=== PATIENT | male | born 1985 | race Caucasian/White ===

== ENCOUNTER 2019-12-09 14:12 | Emergency (ER) | payer OTHER, SELFPAY ==
[2019-12-09 14:21] VITALS: BP 137/82; PULSE 81; RESP 18; TEMP 36.2; O2SAT 99; BMI 22.7
[2019-12-09] MEDS: TET,DIPH,PERTUSS(ACELL),VAC/PF 0.5 ML SYRINGE IM (14:53)
[2019-12-09] MEDS: LIDO 1%/SOD BICARB 8.4% (10ML) 10 ML SYRINGE INJ (14:55)
[2019-12-09 15:41] VITALS: BP 127/75
--- NOTE | 2019-12-09 15:49 | ED.WOUNDLAC ---
HPI - Wound/Laceration <NAREN Correa - Last Filed: 12/09/19 15:55> General Chief Complaint: Wound/Laceration Stated Complaint: wound left thigh Time Seen by Provider: 12/09/19 14:45 Source: patient Mode of arrival: Ambulatory Limitations: no limitations History of Present Illness HPI narrative: The patient is a 34-year-old male nonsmoker who denies pertinent medical history presents with a chief complaint of a laceration to his left thigh. He was at work and accidentally cut his leg with a air box tester. He states he is concerned about contamination given that it was not a clean air box tester. States that he has full range of motion of his left leg. Unknown last tetanus. Related Data Allergies Allergy/AdvReac Type Severity Reaction Status Date / Time No Known Drug Allergies Allergy Verified 12/09/19 14:20 Review of Systems <NAREN Correa - Last Filed: 12/09/19 15:55> Review of Systems Narrative: GENERAL: Denies chills, fatigue, malaise, fever, sweats. HEENT: Denies sinus pain, ear pain, sore throat, difficulty swallowing, dizziness. RESPIRATORY: Denies dyspnea, cough, wheezing, hemoptysis, sputum. CARDIOVASCULAR: Denies chest pain, palpitations, orthopnea, edema, GASTROINTESTINAL: Denies nausea, vomiting, abdominal pain, diarrhea, constipation, melena. : Denies dysuria, frequency, incontinence, hematuria, urinary retention. MUSCULOSKELETAL: denies weakness, joint pain, or bony pain SKIN: See HPI NEUROLOGIC: Denies weakness, headache, numbness, change in speech, confusion, seizures, incoordination. PSYCHIATRIC: No concerning psychosocial issues. 12 point review of systems is negative except for those stated above Patient History <NAREN Correa - Last Filed: 12/09/19 15:55> Social History Smoking Status: Never smoker Smoking Status: Never smoker alcohol intake frequency: holidays/special occasions only Substance Use Type: marijuana Exam <NAREN Correa - Last Filed: 12/09/19 15:55> Narrative Exam Narrative: GENERAL: This is a well-nourished, well-developed patient, in no acute distress HEAD: Atraumatic. Normocephalic. No temporal or scalp tenderness. EYES: Pupils equal round and reactive. Extraocular motions intact. No scleral icterus. No injection or drainage. ENT: Nose without bleeding, purulent drainage or septal hematoma. Airway patent. NECK: Trachea midline. No JVD or lymphadenopathy. Supple, nontender, no meningeal signs. CARDIOVASCULAR: Regular rate and rhythm RESPIRATORY: No cough. No increased respiratory effort. No accessory muscle use. EXTREMITIES: Using all extremities equally. Skin exam as noted. Full range of motion noted left leg. BACK: Nontender without deformity or crepitance. No flank tenderness. NEURO: AOx3. SKIN: 2.5 cm laceration on left thigh, anterior aspect with a 4 mm of separation. Linear, no obvious muscle or tendon involvement. No obvious foreign bodies. Through dermis. Oozing blood Initial Vital Signs Initial Vital Signs: Vital Signs Temperature 97.2 F L 12/09/19 14:21 Pulse Rate 81 12/09/19 14:21 Respiratory Rate 18 12/09/19 14:21 Blood Pressure 137/82 12/09/19 14:21 Pulse Oximetry 99 12/09/19 14:21 <Alessio Schmidt MD - Last Filed: 12/09/19 18:32> Initial Vital Signs Initial Vital Signs: Vital Signs Temperature 97.2 F L 12/09/19 14:21 Pulse Rate 81 12/09/19 14:21 Respiratory Rate 18 12/09/19 14:21 Blood Pressure 137/82 12/09/19 14:21 Pulse Oximetry 99 12/09/19 14:21 Procedures <NAREN Correa - Last Filed: 12/09/19 15:55> Laceration Repair Laceration 1: Site: lower extremity Side (If applicable): left Size (cm): 2.5 Description: linear Depth: simple, single layer Local Anesthetic: lidocaine 1% and with bicarb Amount of anesthesia used (mL): 3 Pre-repair: wound explored, irrigated extensively (Cleansed with povidone iodine as well as Hibiclens) and deep structures intact Skin layer closed with: nylon Size (cm): 4-0 Number of sutures: 3 Technique: simple, interrupted Scores <NAREN Correa - Last Filed: 12/09/19 15:55> GCS Maye coma scale eye opening: Spontaneous Maye coma scale verbal response: Orientated Rush coma scale motor response: Obey commands Maye coma scale total score: 15 Course <NAREN Correa - Last Filed: 12/09/19 15:55> Orders Ordered: Discontinued Medications Bacitracin (Bacitracin) 1 applic TOP NOW ONE Stop: 12/09/19 15:20 Diphtheria/Tetanus/Acell Pertussis (Adacel) 0.5 ml IM .ONCE ONE Stop: 12/09/19 14:40 Last Admin: 12/09/19 14:53 Dose: 0.5 ml Documented by: BTONER Lidocaine/Sodium Bicarbonate (Buffered Lidocaine 10 Ml Syr) 10 ml INJ NOW ONE Stop: 12/09/19 14:49 Last Admin: 12/09/19 14:55 Dose: 10 ml Documented by: BTONER Vital Signs Vital signs: Vital Signs - 8 hr 12/09/19 14:21 12/09/19 15:41 Temperature 97.2 F L Pulse Rate 81 Respiratory Rate 18 Blood Pressure 137/82 127/75 Pulse Oximetry 99 <Alessio Schmidt MD - Last Filed: 12/09/19 18:32> Orders Ordered: Discontinued Medications Bacitracin (Bacitracin) 1 applic TOP NOW ONE Stop: 12/09/19 15:20 Diphtheria/Tetanus/Acell Pertussis (Adacel) 0.5 ml IM .ONCE ONE Stop: 12/09/19 14:40 Last Admin: 12/09/19 14:53 Dose: 0.5 ml Documented by: BTONER Lidocaine/Sodium Bicarbonate (Buffered Lidocaine 10 Ml Syr) 10 ml INJ NOW ONE Stop: 12/09/19 14:49 Last Admin: 12/09/19 14:55 Dose: 10 ml Documented by: BTONER Vital Signs Vital signs: Vital Signs - 8 hr 12/09/19 14:21 12/09/19 15:41 Temperature 97.2 F L Pulse Rate 81 Respiratory Rate 18 Blood Pressure 137/82 127/75 Pulse Oximetry 99 MDM - Wound/Laceration <NAREN Correa - Last Filed: 12/09/19 15:55> MDM Narrative Medical decision making narrative: The patient is a 34-year-old male who presents with a chief complaint of laceration to his left thigh at work by a air box tester. His tetanus was updated accordingly. Three sutures were placed. Patient tolerated well. Discussed at length monitoring for signs symptoms of infection such as redness swelling drainage etcetera. Discussed suture removal in 8-10 days. Encourage keeping it clean etcetera. Patient has no questions or concerns upon discharge and states understanding return precautions as well as follow-up care. Patient has no questions or concerns upon discharge and states understanding return precautions as well as follow-up care. Discharge Plan Departure Patient Disposition: Home Clinical Impression: Laceration Discharge Date/Time: 12/09/19 15:42 Instructions: How to Care for a Laceration After Repair, DI for Laceration Repair Activity Restrictions/Additional Instructions: Thank you for trusting us with your care today. We placed 3 sutures in your leg. We updated your tetanus. Please follow up for suture removal in 8-10 days. As discussed, please monitor for signs and symptoms of infection such as redness, purulent drainage etcetera Please come back to emergency department for any acute concerns I have given you contact information to the [facility] human resources trainee. They can help you find a primary care provider in the area. Referrals: [facility] [Outside]
== END 2019-12-09 15:42 | disposition home or self-care (01) ==
PROVIDERS: Emergency Provider Nurse Practitioner Family
DX: S71.112A Laceration without foreign body, left thigh, initial encounter (principal); W26.8XXA Contact with other sharp object(s), not elsewhere classified, initial encounter; Y99.0 Civilian activity done for income or pay; Z23 Encounter for immunization
CPT/HCPCS: 12001; 90471; 99283; 90715

== ENCOUNTER 2021-10-08 15:21 | Emergency (ER) | payer OTHER, SELFPAY ==
[2021-10-08 15:29] VITALS: BP 155/90; PULSE 104; RESP 22; TEMP 37; O2SAT 96
--- NOTE | 2021-10-08 15:35 | DI.RAD.S_ITS ---
PROCEDURE: XR CHEST 1V INDICATIONS: suspected sepsis TECHNIQUE: One view of the chest was acquired. COMPARISON: [facility], CR, XR RIBS RIGHT WITH PA CHEST, 11/09/2020, 12:16. [facility], CR, XR KNEE LT 3V, 10/08/2021, 15:58. FINDINGS: Surgical changes and devices: None. Lungs and pleura: On this semiupright portable chest examination, no large pneumothorax or large pleural effusions are seen. No focal infiltrates are seen. Mediastinum: Mediastinal contours appear normal. Heart size is normal. Bones and chest wall: No suspicious bony lesions. Overlying soft tissues appear unremarkable. IMPRESSION: Negative for lung infiltrate by portable chest x-ray. Dictated by: Melvin Devine M.D. on 10/08/2021 at 15:40 Approved by: Melvin Devine M.D. on 10/08/2021 at 15:41
--- NOTE | 2021-10-08 15:37 | DI.RAD.S_ITS ---
PROCEDURE: XR KNEE LT 3V INDICATIONS: pain/swelling without injury TECHNIQUE: 3 views of the knee were acquired. COMPARISON: [facility], CR, XR CHEST 1V, 10/08/2021, 15:58. FINDINGS: Bones: No fractures or dislocations. No suspicious bony lesions. Soft tissues: There is a kooh-ru-pyxqlajs joint effusion. No suspicious soft tissue calcifications. IMPRESSION: Xbyc-sv-vzpuavfl joint effusion, without an acute bony abnormality seen by plain film. Dictated by: Melvin Devine M.D. on 10/08/2021 at 15:39 Approved by: Melvin Devine M.D. on 10/08/2021 at 15:40
[2021-10-08 15:55] LABS: Add Manual Diff / Slide Review NO; Basophils Absolute Auto 0 /uL (0-100); Basophils Percent Auto 0.2 % (0-2); Eosinophils Absolute Auto 0 /uL (0-450); Hematocrit 41.8 % (41-53); Hemoglobin 14.2 g/dL (13.5-17.5); Lymphocytes Absolute Auto 900 /uL (1100-4500); Lymphocytes Percent Auto 7.1 % (25-40); Mean Corpuscular Hemoglobin 31.5 PG (26-34); Mean Corpuscular Volume 92.7 fL (80-100); Monocytes Absolute Auto 1500 /uL (0-900); Monocytes Percent Auto 11.8 % (3-14); Neutrophils Absolute Auto 10100 /uL (1500-7000); Neutrophils Percent Auto 80.9 % (50-75); Platelet Count 300 X10^3/uL (150-400); Red Blood Cell Count 4.51 X10^6/uL (4.5-5.9); Red Cell Distribution Width 12.8 % (11.6-14.8); White Blood Cell Count 12.5 X10^3/uL (4.5-11.0)
[2021-10-08 16:05] LABS: Alanine Aminotransferase 28 IU/L (<50); Albumin 4.5 g/dL (3.5-5.0); Albumin Globulin Ratio 1.3 (1.0-2.8); Alkaline Phosphatase 58 U/L (38-126); Aspartate Aminotransferase 34 IU/L (17-59); BUN Creatinine Ratio 18.8 (6-22); Bilirubin Total 0.4 mg/dL (0.2-1.3); Blood Urea Nitrogen 18 mg/dL (9-20); Calcium 9.4 mg/dL (8.4-10.2); Carbon Dioxide 28 mmol/L (22-32); Chloride 102 mmol/L (98-107); Estimated Glomerular Filt Rate > 60 mL/min (>60); Globulin 3.4 g/dL (1.7-4.1); Glucose 141 mg/dL (70-100); HEMOLYSIS < 15 (0-50); Lactate (Lactic Acid) 1.2 mmol/L (0.7-2.1); Lipase 94 U/L (23-300); Potassium 3.8 mmol/L (3.4-5.1); Sodium 136 mmol/L (137-145); Total Protein 7.9 g/dL (6.3-8.2)
[2021-10-08 16:21] LABS: Procalcitonin 0.12 ng/mL (<0.5)
[2021-10-08 17:28] LABS: Urine N gonorrhoeae NOT DETECTED
[2021-10-08 17:31] LABS: Urine Chlamydia DETECTED
--- NOTE | 2021-10-08 18:10 | ED.SKABFB ---
HPI - Skin/Abscess/Foreign Bdy General Chief complaint: Skin/Abscess/Foreign Body Stated complaint: Bacterial Infection In Left Knee Time Seen by Provider: 10/08/21 18:09 Source: patient Mode of arrival: Ambulatory History of Present Illness HPI narrative: 36-year-old gentleman otherwise healthy had some mild dysuria 3 days ago and and was slightly concern for the possibility of an STI. He contacted an online service and ordered STI testing gets that have not yet arrived. Two days ago is noticing mild dysuria and when looking closely very mild purulence discharge. He also noted that his left knee was hurting. Last night the knee was increasingly painful and today he was unable to bend it, bear weight and is in significant pain on initial presentation. He does not describe significant fevers. There has been no cough, nausea, vomiting, diarrhea, abdominal pain, headaches, dizziness, chest pain, palpitations. Related Data Allergies Allergy/AdvReac Type Severity Reaction Status Date / Time No Known Drug Allergies Allergy Verified 12/09/19 14:20 Review of Systems Review of Systems Narrative: Remainder of complete review of systems is otherwise unremarkable except for that included in the HPI. Patient History Social History Smoking Status: Never smoker Smoking Status: Never smoker alcohol intake frequency: holidays/special occasions only Substance Use Type: marijuana Exam Initial Vital Signs Initial Vital Signs: Vital Signs Temperature 98.6 F 10/08/21 15:29 Pulse Rate 104 H 10/08/21 15:29 Respiratory Rate 22 10/08/21 15:29 Blood Pressure 155/90 H 10/08/21 15:29 Pulse Oximetry 96 10/08/21 15:29 General: Healthy appearing, in no acute distress. Nontoxic appearing. Able to give a complete and coherent history. Well-nourished well-developed HEENT: Moist mucous membranes, normal sclera with reactive pupils, Neck: No JVD, supple Respiratory: Lungs are clear to auscultation, no wheezing no rales no rhonchi. Full and symmetrical air movement Cardiac: Regular rate and rhythm no murmurs no bruits Abdomen: Soft, nontender, good bowel tones, no flank pain, no inguinal adenopathy Skin: Warm and dry, no rashes Neurologic: Grossly neurologically intact with no obvious asymmetries or abnormalities Extremities: No trauma, well perfused. Left knee with tenderness mild effusion fullness right supra patellar area. Psych: Cooperative, appropriate insight and affect Procedures Joint Aspiration Joint Asp./Inject. 1: Time of procedure: 20:45 Side of body: left Joint Aspirated: knee Skin Prep: Chlorhexidine Local Anesthetic: lidocaine 1% Amount of anesthesia used (mL): 2 Needle Size Used: 18G Fluid Obtained: bloody (Scant) Additional Comments: Despite what looks like an effusion with multiple attempts , medial, lateral and superior I was unable to obtain any purulence fluid. There is a scant amount of blood that was sent for culture. Course Orders Ordered: ED Orders 10/08/21 15:23 Complete Blood Count AUTO DIFF Stat Comprehensive Metabolic Panel Stat Lactate (Lactic Acid) Stat Lipase Stat Procalcitonin Stat 10/08/21 15:35 XR chest 1V Stat RT Consult Eval and Treat NOW 10/08/21 15:37 XR knee LT 3V Stat 10/08/21 15:43 Chlamydia Gonorrhea PCR -URINE Stat 10/08/21 18:05 Blood Culture Stat 10/08/21 19:34 Body Fluid Culture Stat 10/08/21 19:53 Urine Culture Stat Urine Microscopic Stat Discontinued Medications Sodium Chloride (Normal Saline 0.9%) 1,000 mls @ 1,000 mls/hr IV BOLUS ONE Stop: 10/08/21 16:34 Last Admin: 10/08/21 19:31 Dose: 1,000 mls/hr Documented by: Ceftriaxone Sodium 1,000 mg/ (Sodium Chloride) 100 mls @ 200 mls/hr IV NOW ONE Stop: 10/08/21 19:35 Last Admin: 10/08/21 19:57 Dose: 200 mls/hr Documented by: Ketorolac Tromethamine (Ketorolac 30 Mg/Ml Vial) 15 mg IV NOW ONE Stop: 10/08/21 19:08 Last Admin: 10/08/21 19:30 Dose: 15 mg Documented by: Oxycodone/Acetaminophen (Oxycodone/Apap 5/325 Prepack) 1 bottle MISC SEEINSTR ONE Stop: 10/08/21 19:48 Last Admin: 10/08/21 19:57 Dose: 1 bottle Documented by: Vital Signs Vital signs: Vital Signs - 8 hr 10/08/21 15:29 Temperature 98.6 F Pulse Rate 104 H Respiratory Rate 22 Blood Pressure 155/90 H Pulse Oximetry 96 MDM - Skin/Abscess/Foreign Bdy Lab Data Result diagrams: 10/08/21 15:23 10/08/21 15:23 Labs: Lab Results 10/08/21 10/08/21 10/08/21 Range/Units 15:23 15: 15: WBC 12.5 H (4.5-11.0) X10^3/uL RBC 4.51 (4.5-5.9) X10^6/uL Hgb 14.2 (13.5-17.5) g/dL Hct 41.8 (41-53) % MCV 92.7 (80-100) fL MCH 31.5 (26-34) PG MCHC 34.0 (30-36) % RDW 12.8 (11.6-14.8) % Plt Count 300 (150-400) X10^3/uL Neut % (Auto) 80.9 H (50-75) % Lymph % (Auto) 7.1 L (25-40) % [place] % (Auto) 11.8 (3-14) % Eos % (Auto) 0.0 L (2-4) % Baso % (Auto) 0.2 (0-2) % Neut # (Auto) 19965 H (4160-0837) /uL Lymph # (Auto) 900 L (6648-6098) /uL [place] # (Auto) 1500 H (0-900) /uL Eos # (Auto) 0 (0-450) /uL Baso # (Auto) 0 (0-100) /uL Sodium 136 L (137-145) mmol/L Potassium 3.8 (3.4-5.1) mmol/L Chloride 102 (98-107) mmol/L Carbon Dioxide 28 (22-32) mmol/L BUN 18 (9-20) mg/dL Creatinine 0.96 (0.66-1.25) mg/dL Estimated GFR > 60 (>60) mL/min BUN/Creatinine Ratio 18.8 (6-22) Glucose 141 H (70-100) mg/dL Lactate 1.2 (0.7-2.1) mmol/L Calcium 9.4 (8.4-10.2) mg/dL Total Bilirubin 0.4 (0.2-1.3) mg/dL AST 34 (17-59) IU/L ALT 28 (<50) IU/L Alkaline Phosphatase 58 (38-126) U/L Total Protein 7.9 (6.3-8.2) g/dL Albumin 4.5 (3.5-5.0) g/dL Globulin 3.4 (1.7-4.1) g/dL Albumin/Globulin Ratio 1.3 (1.0-2.8) Lipase 94 (23-300) U/L Procalcitonin 0.12 (<0.5) ng/mL Urine RBC (0-5/HPF) Urine WBC (0-5/HPF) Urine Bacteria (None) Ur Culture Indicated? Ur Chlamydia DNA (PCR) N gonorrhoeae DNA (PCR) 10/08/21 10/08/21 Range/Units 15:43 19:53 WBC (4.5-11.0) X10^3/uL RBC (4.5-5.9) X10^6/uL Hgb (13.5-17.5) g/dL Hct (41-53) % MCV (80-100) fL MCH (26-34) PG MCHC (30-36) % RDW (11.6-14.8) % Plt Count (150-400) X10^3/uL Neut % (Auto) (50-75) % Lymph % (Auto) (25-40) % [place] % (Auto) (3-14) % Eos % (Auto) (2-4) % Baso % (Auto) (0-2) % Neut # (Auto) (4833-5015) /uL Lymph # (Auto) (0613-3271) /uL [place] # (Auto) (0-900) /uL Eos # (Auto) (0-450) /uL Baso # (Auto) (0-100) /uL Sodium (137-145) mmol/L Potassium (3.4-5.1) mmol/L Chloride (98-107) mmol/L Carbon Dioxide (22-32) mmol/L BUN (9-20) mg/dL Creatinine (0.66-1.25) mg/dL Estimated GFR (>60) mL/min BUN/Creatinine Ratio (6-22) Glucose (70-100) mg/dL Lactate (0.7-2.1) mmol/L Calcium (8.4-10.2) mg/dL Total Bilirubin (0.2-1.3) mg/dL AST (17-59) IU/L ALT (<50) IU/L Alkaline Phosphatase (38-126) U/L Total Protein (6.3-8.2) g/dL Albumin (3.5-5.0) g/dL Globulin (1.7-4.1) g/dL Albumin/Globulin Ratio (1.0-2.8) Lipase (23-300) U/L Procalcitonin (<0.5) ng/mL Urine RBC 0-1/hpf (0-5/HPF) Urine WBC 5-10/hpf H (0-5/HPF) Urine Bacteria Occasional (0-1) (None) Ur Culture Indicated? Specimen cultured Ur Chlamydia DNA (PCR) Detected H N gonorrhoeae DNA (PCR) Not detected Urine Dip Bedside Urine Glucose 250 mg/dl Bedside Urine Bilirubin - Negative Bedside Urine Ketone - Negative Urine Specific [place] 1.020 Bedside Urine Occult Blood +/- Bedside Urine pH 6.0 Bedside Urine Protein + 30 Bedside Urine Urobilinogen - Negative Bedside Urine Nitrite - Negative Bedside Urine Leukocytes - Negative Esterase MDM Narrative Medical decision making narrative: 36-year-old gentleman concerned that he has a septic got a coccal arthritis of the left knee. He has had minor dysuria and scant purulence discharge for 3 days. Over that same time frame he has noticed increasing pain in the left knee with swelling but no warmth or redness. At this point the effusion and pain is enough that he is having difficulty walking on that leg. Multiple attempts were made to obtain synovial fluid. Care is reviewed with Dr. Duggan, infectious disease specialist. From an online source, patient has gotten antibiotics including 1 g of azithromycin, 1 g metronidazole and 200 mg of cefpodoxime that were all taken at 11:00 p.m. today. Blood cultures were obtained at 3:30 a.m. this afternoon. Urine testing shows chlamydia but no gonorrhea. Mild leukocytosis with normal procalcitonin. the scant amount of knee aspirate was cultured Patient continues to appear entirely nontoxic throughout his entire emergency room visit. In discussion with Dr. Duggan, you can have a painful reactive synovitis with chlamydia and that may be the picture that is present with the fullness more in the medial aspect of the suprapatellar area rather than the joint itself. However, with possibility of gonococcal septic joint risks are significant so we will opt to begin 7 days of IV ceftriaxone 1 g daily. He is given 1 g in the emergency department. The infectious disease office will contact the patient tomorrow to schedule an appointment for tomorrow and Dr. Duggan will arrange for continued IV ceftriaxone. I have told the patient that if tomorrow he is having difficulty getting into an infusion clinic for the next dose of ceftriaxone that he should come back to the emergency department. At time of discharge he is feeling significantly better with a knee immobilizer in place and Toradol administered. All findings are reviewed with him. Questions are answered and he is safe for home discharge Discharge Plan Departure Patient Disposition: Home Clinical Impression: Chlamydia, Septic joint of left knee joint Instructions: DI for Joint Pain Activity Restrictions/Additional Instructions: Thank you for coming in today You were chlamydia test did come back positive and you have already taken only appropriate medication for that. Please give the azithromycin to your partner, the dose is 1 g or 2 of the 500 mg pills that you have left. There is significant concern for a septic arthritis. Your urine gonorrhea test came back negative however the consequences of missing that diagnosis are significant. Your x-ray does suggest that there is a small effusion. Despite multiple efforts(you get in an A + in patience while I tried all of those efforts), I was only able to get a very small amount of blood/fluid. This has been sent for culture. You are given 1g of IV ceftriaxone tonight. The recommended course of antibiotics for septic arthritis is 7 days of 1 g of ceftriaxone IV. I did review this case with Dr. Duggan, Infectious Disease specialist [facility]. Her office will call you tomorrow and she will have you come in to see her. She is going to try to arrange the additional 6 doses of IV antibiotics. If this is unable to happen tomorrow, please return to the emergency department tomorrow night for this 2nd dose of IV ceftriaxone If you have fevers, chills, find that you are developing body aches or getting worse, you need to come back to the emergency department Using 400 mg of ibuprofen (2 pujl-foi-qxycxle pills) and 1 Tylenol every 6 hours can be very helpful in controlling pain. For severe pain you can add at Percocet to this combination I think using the knee immobilizer will be helpful in reducing overall knee pain. Crutches will be helpful in overall mobility. I have given you a copy of your blood work from today. Please share this with Dr Duggan when you see her tomorrow. I wish you the best Referrals: Miscellaneous,Doctor, [Primary Care Provider] -
[2021-10-08] MEDS: KETOROLAC 30 MG/ML VIAL 15 MG IV (19:30)
[2021-10-08] MEDS: SODIUM CHLORIDE 0.9% 1,000 ML 1000 ML IV (19:31)
[2021-10-08] MEDS: LIDOCAINE 1% W/EPI 30 ML (19:32)
[2021-10-08] MEDS: cefTRIAXone 1,000 MG in SODIUM CHLORIDE 0.9% 100 ML 200 MG IV (19:57)
[2021-10-08] MEDS: OXYCODONE/APAP 5/325 PREPACK 1 BOTTLE MISC (19:57)
[2021-10-08 20:02] LABS: Bacteria Urine Occasional (0-1); Culture Indicated Urine Specimen Cultured; RBC Urine 0-1/HPF (0-5/HPF); WBC Urine 5-10/HPF (0-5/HPF)
[2021-10-08 20:35] VITALS: BP 144/85; PULSE 88; O2SAT 98
== END 2021-10-08 21:09 | disposition home or self-care (01) ==
PROVIDERS: Emergency Medicine; Emergency Provider Emergency Medicine
DX: M00.9 Pyogenic arthritis, unspecified (principal); A74.9 Chlamydial infection, unspecified
CPT/HCPCS: 20610; 71045; 73562; 80053; 81003; 81015; 83605; 83690; 84145; 85025; 87040; 87086; 87491; 87591; 96365; 96375; 99283; J0696; J1885